=== PATIENT | female | born 1970 ===

== ENCOUNTER 2022-11-10 22:15 | Inpatient (IN) | payer OTHER ==
[~2022-11-10] VITALS: Ht 162.6 cm; Wt 81.3 kg
[~2022-11-10 22:15] MED LIST: ATOR20 PO; ATOR80 PO; CEPH500 PO; CETI10; CIPR250 PO; CITA20 PO; CRUTCH2 USE; Citalopram HBr20 MG; DIPH25 PO; EUTHYROX25 MCG PO; HYDACE5325 PO; HYDHCL25 PO; LEVSOD112 PO; LORA10ER PO; METF500 PO; MONT10T PO; PEGASYS; PRED10 PO; PRED20 PO; PROM25 PO; RIBA200; TRAZ50 PO; VENL75
[2022-11-10 22:57] LABS: BASOPHILS ABSOLUTE AUTO 0.02 K/mm3 (0.00-0.23); BASOPHILS PERCENT AUTO 0 % (0-2); EOSINOPHILS PERCENT AUTO 0 % (0-6); Hemoglobin 13.8 g/dL (11.5-16.0); IMMATURE GRAN ABSOLUTE AUTO 0.02 K/mm3 (0.00-0.10); IMMATURE GRAN PERCENT AUTO 0 % (0-1); LYMPHOCYTES ABSOLUTE AUTO 0.48 K/mm3 (0.84-5.20); LYMPHOCYTES PERCENT AUTO 10 % (21-46); MONOCYTES PERCENT AUTO 15 % (4-13); Mean Corpuscular HGB 30.8 pg (26.0-34.0); Mean Corpuscular HGB Conc 34.5 g/dL (31.5-36.5); Mean Corpuscular Volume 89 fL (80-100); Mean Platelet Volume 9.7 fL (9.1-12.4); NEUTROPHILS PERCENT AUTO 74 % (41-73); Platelet Count 178 K/mm3 (150-400); RDW Coefficient Variation 12.8 % (11.7-14.2); RDW Standard Deviation 41.9 fL (35.1-46.3); Red Blood Cell Count 4.48 M/mm3 (3.80-5.20); White Blood Cell Count 4.72 K/mm3 (4.00-11.30)
[2022-11-10 23:15] LABS: Albumin, Blood 3.2 g/dL (3.4-5.0); Albumin/Globulin Ratio 0.7 (0.8-1.8); Bilirubin, Total 0.5 mg/dL (0.1-1.0); Bun/Creatinine Ratio 17.7 (12.0-20.0); Calcium, Blood 8.1 mg/dL (8.5-10.1); Creatinine, Blood 0.79 mg/dL (0.40-1.00); Globulin, Blood 4.5 g/dL (2.2-4.0); Potassium, Blood 3.8 mmol/L (3.5-5.5); Total Protein, Blood 7.7 g/dL (6.4-8.2)
[2022-11-10 23:33] LABS: Influenza B, PCR NEGATIVE (NEGATIVE); Resp Syncytial Virus, PCR NEGATIVE (NEGATIVE); SARS-Cov-2 (COVID-19) PCR, MMC NEGATIVE (NEGATIVE)
[2022-11-10 23:55] LABS: Influenza A, PCR POSITIVE (NEGATIVE)
[2022-11-11 01:38] LABS: Ethanol (Alcohol), Blood, Med <3 mg/dL
[2022-11-11 01:39] LABS: Thyroid Stimulating Hormone 0.655 uIU/mL (0.360-4.800)
[2022-11-11 01:47] LABS: Base Excess Venous -0.9 mmol/L; Bicarbonate Venous 23.6 mmol/L (24.0-30.0); PCO2 Venous 41.3 mmHg (38-42); pH Blood Venous 7.38 (7.34-7.37)
[2022-11-11 03:21] LABS: U Amphetamine Screen DETECTED; U Barbituate Screen Not Detected; U Benzodiazapine Screen Not Detected; U Buprenorphine Screen Not Detected; U Cannabinoids Screen Not Detected; U Cocaine Screen Not Detected; U Methadone Screen Not Detected; U Methamphetamine Screen DETECTED; U Opiates Screen Not Detected; U Oxycodone Screen Not Detected; U Phencyclidine Screen Not Detected; U Propoxyphene Screen Not Detected
--- NOTE | 2022-11-11 06:27 | NUR ---
ASSUMED CARE OF PT AT 0603 FROM ER NURSE MIRI PT DEEP SLEEPING BUT MOANING UPON ARRIVAL. WILL FOLLOW COMMANDS. RIGHT LOWER ARM SWELLING AND FEVERED. RING JEWELRY TAKEN OFF AND STORED. LEFT FINGERS SWOLLEN WELL. BOTH IV IN RIGHT ARM TO BE DISCHARGED DUE TO SWELLING. BP 101/67 HR 70'S LUNG SOUNDS CLEAR BILATERALLY. SPO2 97% ON RA. PT IS ABLE TO USE COMMODE FOR BATHROOM NEEDS. SEE FULL ASSESSMENT FOR FURTHER INFORMATION.
[2022-11-11 08:07] LABS: Albumin, Blood 2.9 g/dL (3.4-5.0); Albumin/Globulin Ratio 0.7 (0.8-1.8); Bilirubin, Total 0.5 mg/dL (0.1-1.0); Bun/Creatinine Ratio 18.4 (12.0-20.0); Calcium, Blood 7.6 mg/dL (8.5-10.1); Creatinine, Blood 0.71 mg/dL (0.40-1.00); Globulin, Blood 4.4 g/dL (2.2-4.0); Potassium, Blood 3.7 mmol/L (3.5-5.5); Total Protein, Blood 7.3 g/dL (6.4-8.2)
--- NOTE | 2022-11-11 10:07 | NUR ---
MED REC PT UNABLE TO LIST HER MEDICATIONS. STATES SHE USES [facility] IN [place]. CALLED [facility] AND THEY STATE PT HASN'T HAD ANY MEDICATIONS FILLED IN THE LAST YEAR.
--- NOTE | 2022-11-11 12:08 | NUR ---
REASSESSMENT PT CONTINUES TO SLEEP UNLESS WOKEN UP. SHE WAKES TO VOICE, SPEAKS IN A WHISPER, BUT IS ORIENTED. HER LUNGS ARE CLEAR. NON PRODUCTIVE COUGH THAT SHE HAS UPPER CHEST PAIN AND THROAT PAIN WITH. SR, BP STABLE. NO VOID YET. HAS SAFELY TAKEN WATER PO, SO WILL GIVE LUNCH IF SHE WILL STAY AWAKE. SPOKE WITH PT'S MEÑO PET PT'S REQUEST AND PROVIDED UPDATE. PT'S ALSO CALLED AND SPOKE WITH PT ON THE PHONE. CONTINUING TO MONITOR.
--- NOTE | 2022-11-11 16:19 | NUR ---
SHIFT SUMMARY PT HAS BEEN EASIER TO WAKE UP THIS AFTERNOON AND HAS EVEN WOKEN UP TWICE, THEN USED THE CALL LIGHT APPROPRIATELY TO GET ASSISTANCE TO GET TO THE BR. HER LUNGS REMAIN CLEAR. OXYGEN THAT WAS STARTED THIS MORNING FOR PT'S SPO2 DROPPING TO THE 80S WHILE SLEEPING HAS BEEN TITRATED DOWN TO 1L/NC, AND CURRENTLY TRIALING OFF. SR, BP STABLE. PT ATE LUNCH AND HAS BEEN DRINKING FLUIDS. PT'S MEÑO CAME IN AND VISITED PT. IBUPROFEN GIVEN ONCE TO HELP WITH THROAT/CHEST PAIN THAT IS ASSOCIATED WITH COUGHING. DR. LEDESMA CAME BY AND GAVE OK FOR PT TO BE MED NO TELE.
--- NOTE | 2022-11-11 19:46 | NUR ---
TOOK OVER CARE OF PT AT 1900, PT RESTING ON 1L NC
[2022-11-12 03:44] LABS: BASOPHILS ABSOLUTE AUTO 0.01 K/mm3 (0.00-0.23); BASOPHILS PERCENT AUTO 0 % (0-2); EOSINOPHILS ABSOLUTE AUTO 0.06 K/mm3 (0.00-0.68); EOSINOPHILS PERCENT AUTO 2 % (0-6); Hematocrit 41.5 % (33.0-51.0); Hemoglobin 13.5 g/dL (11.5-16.0); IMMATURE GRAN ABSOLUTE AUTO 0.01 K/mm3 (0.00-0.10); IMMATURE GRAN PERCENT AUTO 0 % (0-1); LYMPHOCYTES ABSOLUTE AUTO 1.11 K/mm3 (0.84-5.20); LYMPHOCYTES PERCENT AUTO 33 % (21-46); MONOCYTES PERCENT AUTO 15 % (4-13); Mean Corpuscular HGB 30.5 pg (26.0-34.0); Mean Corpuscular HGB Conc 32.5 g/dL (31.5-36.5); Mean Platelet Volume 9.9 fL (9.1-12.4); NEUTROPHILS ABSOLUTE AUTO 1.65 K/mm3 (1.96-9.15); NEUTROPHILS PERCENT AUTO 49 % (41-73); Platelet Count 149 K/mm3 (150-400); RDW Coefficient Variation 13.2 % (11.7-14.2); RDW Standard Deviation 45.6 fL (35.1-46.3); Red Blood Cell Count 4.42 M/mm3 (3.80-5.20); White Blood Cell Count 3.34 K/mm3 (4.00-11.30)
[2022-11-12 04:00] LABS: Mean Corpuscular Volume 94 fL (80-100)
[2022-11-12 04:19] LABS: Albumin, Blood 2.8 g/dL (3.4-5.0); Albumin/Globulin Ratio 0.7 (0.8-1.8); Bilirubin, Total 0.5 mg/dL (0.1-1.0); Calcium, Blood 7.8 mg/dL (8.5-10.1); Creatinine, Blood 0.64 mg/dL (0.40-1.00); Globulin, Blood 4.2 g/dL (2.2-4.0); Potassium, Blood 4.2 mmol/L (3.5-5.5)
--- NOTE | 2022-11-12 08:52 | NUR ---
MART IS INDEPENDENT IN HER ROOM, SHE COMPLAINS OF 8/10 CHEST PAIN WITH HER CONGESTION AND COUGH. SHE MOANS WHILE MOVING. EXPRESSES FRUSTRATION THAT SHE IS UNABLE TO GET AHOLD OF HER . SHE IS ABLE TO GET UP TO THE BR IND. AND FEED HERSELF. SHE IS TAKING IN FLUIDS, JUST DOESN'T "FEEL GOOD".
--- NOTE | 2022-11-12 10:25 | NUR ---
PT IS CURRENTLY RESTING QUIETLY IN HER ROOM, WITHOUT ANY COMPLAINTS. ABLE TO MAKE HER NEEDS KNOWN.
--- NOTE | 2022-11-12 13:06 | NUR ---
PT FOUND TO BE WEEPING AND CRYING, CAUSING A COUGHING FIT. ANXIOUS AND FEARFUL ABOUT BEING LEFT ON THE STREET. ASKED HOW WE CAN HELP, TRIED TO CALM PATIENT. CALLED FOR PASTORAL SERVICES. SHE IS ANXIOUS ABOUT GETTING "THROWN BACK OUT ON THE STREET".
--- NOTE | 2022-11-12 14:22 | NUR ---
Upon receiving a referral from pt's RN Radha, I visit pt. Pt immediately is tearful and shares about her family unit complications, her emotional pain and her fears and concerns about the future. She also explains about her housing insecurity and her fears about how her dogs may be not be taken care while she is hospitalized. We explore different options about where to go and choices that may need to be made for a more healthy life. Pt shares about her grown children and small grand children. I normalize her experience, reinforce helpful attitudes and practices and provide therapeutic listening, gentle advice and prayer. Pt responds well and shows signs of being very reflective and voices great appreciation for the visit. I will continue to remain available to patient and family.
--- NOTE | 2022-11-12 18:46 | NUR ---
UPDATE PT AGITATED AND EXPRESSING DESIRE TO LEAVE AMA D/T CONCERNS FOR PT'S HUSBANDS CONDITION. WAS ABLE TO REORIENT PT AND EXPLAIN THAT SHE IS ILL AND IT WOULD BE BETTER IF SHE STAYED AND CALL HER IN AN HOUR OR TWO WHEN PT'S PHONE IS CHARGED. PLACED MUSIC ON/DIMMED LIGHTS AND PT LAID BACK IN BED. PT STATED CONCERN WAS D/T BEING CHRONICALLY ILL AND NOW FEELING SICK W/ THE FLU. PT'S ON SPEAKER PHONE SAID HE WAS FINE. PT EXPRESSED DISTRESS THAT HE HASN'T VISITED HER AND THAT IF HE WAS TOO SICK TO VISIT THEN "HE SHOULD GO TO THE ER". PT HAS NO PLANS OF LEAVING AMA AT TIME OF THIS NOTE.
--- NOTE | 2022-11-12 19:11 | NUR ---
MART HAS BEEN QUIET IN HER ROOM FOR MOST OF THE DAY, LUNGS CONGESTED, COUGH CONGESTED, HARSH AT TIME. SHE HAS HAD 2 BOUTS OF "PANIC ATTACKS" WHERE SHE JUST STARTS SOBBING AND SAYING SHE IS UPSET ABOUT HER NOT VISITING, HIM BEING ILL, NOT TAKING CARE OF HIMSELF OR HELPING HER TO TAKE CARE OF HIM. SHE HAS BEEN ON ROOM AIR, VITALS STABLE, ALTHOUGH BP IS SOFT. ORDERED MAINTENANCE IV FLUIDS @ 100 ML/HR. SHE HAS ONLY 1 PIV IN THE RIGHT AC THE RIGHT FOREARM/WRIST WAS "LEAKING" PER PATIENT. SHE REFUSED SHOWER TODAY, BUT LINENS WERE CHANGED SINCE THE PIV SL "LEAKED". SHE WAS TALKED DOWN BY ANOTHER RN JUST A SHORT WHILE AGO, REMINDING HER THAT SHE HAS NO PLACE TO GO, NO ONE TO PICK HER UP AND IT BEING FROZEN OUTSIDE. SHE WAS ABLE TO CALM AND STAY IN HER ROOM. REPORT TO NEXT SHIFT.
[2022-11-13 03:26] LABS: BASOPHILS ABSOLUTE AUTO 0.01 K/mm3 (0.00-0.23); BASOPHILS PERCENT AUTO 0 % (0-2); EOSINOPHILS ABSOLUTE AUTO 0.07 K/mm3 (0.00-0.68); EOSINOPHILS PERCENT AUTO 3 % (0-6); Hematocrit 37.1 % (33.0-51.0); Hemoglobin 12.7 g/dL (11.5-16.0); IMMATURE GRAN PERCENT AUTO 0 % (0-1); LYMPHOCYTES ABSOLUTE AUTO 1.17 K/mm3 (0.84-5.20); LYMPHOCYTES PERCENT AUTO 45 % (21-46); MONOCYTES ABSOLUTE AUTO 0.26 K/mm3 (0.16-1.47); MONOCYTES PERCENT AUTO 10 % (4-13); Mean Corpuscular HGB 31.2 pg (26.0-34.0); Mean Corpuscular HGB Conc 34.2 g/dL (31.5-36.5); Mean Corpuscular Volume 91 fL (80-100); Mean Platelet Volume 9.8 fL (9.1-12.4); NEUTROPHILS ABSOLUTE AUTO 1.11 K/mm3 (1.96-9.15); NEUTROPHILS PERCENT AUTO 42 % (41-73); Platelet Count 160 K/mm3 (150-400); RDW Coefficient Variation 12.9 % (11.7-14.2); RDW Standard Deviation 43.6 fL (35.1-46.3); Red Blood Cell Count 4.07 M/mm3 (3.80-5.20); White Blood Cell Count 2.62 K/mm3 (4.00-11.30)
[2022-11-13 03:45] LABS: Albumin, Blood 2.6 g/dL (3.4-5.0); Albumin/Globulin Ratio 0.6 (0.8-1.8); Bilirubin, Total 0.2 mg/dL (0.1-1.0); Bun/Creatinine Ratio 21.6 (12.0-20.0); Calcium, Blood 7.7 mg/dL (8.5-10.1); Creatinine, Blood 0.65 mg/dL (0.40-1.00); Globulin, Blood 4.3 g/dL (2.2-4.0); Potassium, Blood 4.1 mmol/L (3.5-5.5); Total Protein, Blood 6.9 g/dL (6.4-8.2)
--- NOTE | 2022-11-13 05:15 | NUR ---
END OF SHIFT REPORT NEURO: A&OX4. PT DENIES NUMBNESS/TINGLING OR VISION CHANGES OVERNIGHT. FULL SENSATION AND STRENGTH IN ALL FOUR EXTREMITIES. CARDIAC: PT DENIES CHEST PAIN OVERNIGHT. BP AVERAGING 90s/60s MAPS >65. RESPIRATORY: RA. SATS >92. BREATH SOUNDS CLEAR BILATERALLY. CONGESTED WITH DRY UNPRODUCTIVE COUGH. GI/: CONTINENT OF BOTH. NO PAIN TO ABDOMEN WITH PALPATION. MUSCULOSKELETAL: UP INDEPENDENTLY TO RESTROOM INTEGUMENTARY: INTACT. PLAN: FIGURE OUT HOUSING SITUATION AT [facility] TO BE APPOPRIATE FOR DISCHARGE
--- NOTE | 2022-11-13 09:32 | NUR ---
SHIFT ASSESSMENT PT ALERT AND ORIENTED, FOLLOWING ALL COMMANDS, INDEPENDENT IN ROOM. DENIES CP OR SOB, STATES SHE IS FEELING MUCH BETTER. VSS. PTS MAIN CONCERN IS HOUSING RELATED SHE IS NOW NOT SURE ABOUT GOING TO [place] WITH S/O. CASE MANAGEMENT NOTIFIED AND CALLED PT VIA HOSPITAL PHONE PT IS ON ISOLATION FOR INFLUENZA. AWAITING DISCHARGE ORDERS AND HOUSING ARRANGEMENTS.
[2022-11-13] MEDS ORDERED: Tessalon200 MG PO (11:08)
[2022-11-13] MEDS ORDERED: IBUP400 PO (11:09)
[2022-11-13] MEDS ORDERED: OSEL75CA PO (11:09)
--- NOTE | 2022-11-13 12:08 | NUR ---
DISCHARGE PT DC'D HOME. DURING DISCHARGE PT BECAME IRATE, NOT ALLOWING VITALS TO BE TAKEN, SCREAMING ABOUT HER , THROWING BELONGINGS IN ROOM. THIS NURSE ATTEMPTED TO CONSOLE PT WITH LITTLE RELIEF. PT GIVEN DC INSTRUCTIONS, INFORMED OF MEDS BEING FAXED TO PHARMACY (THIS NURSE CONTACTED [facility] TO CONFIRM FAX), AND PRESCRIPTION FOR CBC GIVEN. PT TOOK INFORMATION AND STORMED OUT OF THE UNIT SCREAMING WITH BELONGINGS IN TOW. SECURITY NOTIFIED, CHARGE NURSE FOLLOWED FAR BEHIND PT, PT DID LEAVE HOSPITAL [facility].
== END 2022-11-13 12:12 | disposition home or self-care (01) | DRG 871 ==
LOC: ER 22:15 → ICUW 11-11 03:58 → ER 11-11 03:58 → ICUW 11-11 03:58
PROVIDERS: Family Medicine; Student in an Organized Health Care Education/Training Program; ADMIT Internal Medicine
DX: A41.9 Sepsis, unspecified organism (principal); G93.41 Metabolic encephalopathy; J96.01 Acute respiratory failure with hypoxia; Q23.1 Congenital insufficiency of aortic valve; E87.20 Acidosis, unspecified; E87.1 Hypo-osmolality and hyponatremia; E72.20 Disorder of urea cycle metabolism, unspecified; J10.1 Influenza due to other identified influenza virus with other respiratory manifestations; I95.9 Hypotension, unspecified; F15.10 Other stimulant abuse, uncomplicated; R65.20 Severe sepsis without septic shock; G40.909 Epilepsy, unspecified, not intractable, without status epilepticus; I71.9 Aortic aneurysm of unspecified site, without rupture; E78.5 Hyperlipidemia, unspecified; I10 Essential (primary) hypertension; B19.20 Unspecified viral hepatitis C without hepatic coma; E11.9 Type 2 diabetes mellitus without complications; R01.1 Cardiac murmur, unspecified; E03.9 Hypothyroidism, unspecified; F17.210 Nicotine dependence, cigarettes, uncomplicated; D70.9 Neutropenia, unspecified; F41.9 Anxiety disorder, unspecified; K76.0 Fatty (change of) liver, not elsewhere classified; F32.A Depression, unspecified; Z20.822 Contact with and (suspected) exposure to COVID-19; Z79.899 Other long term (current) drug therapy; Z98.890 Other specified postprocedural states; Z91.51 Personal history of suicidal behavior; Z85.41 Personal history of malignant neoplasm of cervix uteri; Z90.710 Acquired absence of both cervix and uterus; Z86.79 Personal history of other diseases of the circulatory system
CPT/HCPCS: 0241U; 36415; 70450; 71275; 80053; 82140; 82803; 82947; 83605; 83880; 84443; 84484; 85025; 93005; 93010; 94762; 96361; 96372; 96374-59; 96375-59; 99285-25; A9270; G0378; G0480; J1650; J1885; J2405; J7030; J7120; Q9967

== ENCOUNTER → 2022-12-06 | Outpatient (CLI) | payer OTHER ==
[~2022-12-06] MED LIST changes: +IBUP400 PO; +OSEL75CA PO; +Tessalon200 MG PO
== END | disposition home or self-care (01) ==
LOC: LAB SHORT 15:00
DX: R30.0 Dysuria (principal)
CPT/HCPCS: 87086